=== PATIENT | female | born 1955 | race Caucasian/White ===

== ENCOUNTER 2016-06-25 15:00 | Emergency (ER) | payer BC ==
[2016-06-25] MEDS ORDERED: SODIUM CHLORIDE 0.9% 1,000 ML IV STA ×2 (15:29)
[2016-06-25] MEDS ORDERED: ONDANSETRON 4 MG/2 ML VIAL IVP STA (15:29)
--- NOTE | 2016-06-25 15:43 | ED ---
General Adult HPI - General Chief complaint: Abdominal Pain Stated complaint: Abd pain Time Seen by Provider: 06/25/16 15:17 Source: patient, family, RN notes reviewed Mode of arrival: ambulatory Limitations: no limitations - History of Present Illness Initial comments: Chief complaint and history of present illness is a 61-year-old female here with her . The patient has been vomiting for several days. Unable to keep anything but just sips of water down. Otherwise she's not able to stay hydrated. The patient has had LAP-BAND surgery. Last time she had the port emptied was over 4 years ago. She was at another facility yesterday and 2 attempts to empty the port and deflate the LAP-BAND balloon were unsuccessful. They called Dr. Burt who told her to come here for evaluation. - Related Data Home Medications Medication Instructions Recorded Confirmed Ibuprofen [Motrin] 400 mg PO Q8HR PRN 06/25/16 06/25/16 Allergies Allergy/AdvReac Type Severity Reaction Status Date / Time No Known Allergies Allergy Verified 06/25/16 15:08 Review of Systems ROS Statement: Those systems with pertinent positive or pertinent negative responses have been documented in the HPI. Review of systems no other complaints other than not be all to keep fluids down. She has not tried to eat because that would be related more difficult. Otherwise denying any chest pain shortness of breath no problems. All systems are reviewed. Past medical problems significant for having had LAP-BAND surgery. Denies high blood pressure diabetes. Her surgeries include LAP-BAND 8 years ago. Last time she had a fill or emptying of the port was over 4 years ago. The patient' s other surgeries include cholecystectomy, back surgery twice. Cervical spine surgery, partial hysterectomy, and bladder surgery. The patient's family history significant for father had prostate cancer patient's mother had heart disease. The patient quit smoking over 30 years ago denies alcohol use. ROS Other: All systems not noted in ROS Statement are negative. Past Medical History Past Medical History: No Reported History, Pneumonia History of Any Multi-Drug Resistant Organisms: MRSA Date of last positivie culture/infection: 2009 MDRO Source:: back Past Surgical History: Back Surgery, Cholecystectomy, Hysterectomy Additional Past Surgical History / Comment(s): lap band Past Psychological History: No Psychological Hx Reported Smoking Status: Never smoker Past Alcohol Use History: None Reported Past Drug Use History: None Reported General Exam - General Exam Comments Initial Comments: General: The patient is awake and alert, in no distress, and does not appear acutely ill. Complains not been able to keep fluids down because of her lap band. Vital signs shows temperature 97.5 pulse 72 respiratory rate 18 pulse ox on percent room air blood pressure 172/77 elevated systolic diastolic noted. The patient is in some distress she will be following up with her physician this week. Eye: Pupils are equal, round and reactive to light, extra-ocular movements are intact ; there is normal conjunctiva bilaterally. No signs of icterus. Ears, nose, mouth and throat: There are moist mucous membranes and no oral lesions. Neck: The neck is supple, there is no tenderness Cardiovascular: There is a regular rate and rhythm. No murmur, rub or gallop is appreciated. Respiratory: Lungs are clear to auscultation, respirations are non-labored, breath sounds are equal. No wheezes, stridor, rales, or rhonchi. Gastrointestinal: Soft, non-distended, non-tender abdomen without masses or organomegaly noted. There is no rebound or guarding present. No CVA tenderness. No complaints of recurrent back or extremity pain. Neurological: No complaint of any neuro deficits, no complaint of any numbness or tingling or weakness. Skin: No complaints of any rashes Limitations: no limitations Course Vital Signs 06/25/16 06/25/16 06/25/16 15:01 17:15 17:38 Temperature 97.5 F L 96.8 F L Pulse Rate 72 62 Respiratory 18 16 18 Rate Blood Pressure 172/77 168/96 O2 Sat by Pulse 100 100 Oximetry Medical Decision Making - Medical Decision Making The patient will have labs drawn and more importantly receive IV fluids. General surgeon Dr. Burt was notified of the circumstances and he'll see the patient in the emergency room. Patient was rehydrated well emergency room. Patient was evaluated by Dr. Villareal in emergency room. He was able to withdraw 6 6 mL of fluid from the port. The patient be discharged home she'll follow-up with her LAP-BAND surgeon. - Lab Data Result diagrams: 06/25/16 15:40 06/25/16 15:40 Lab Results 06/25/16 06/25/16 Range/Units 15:40 15:40 WBC 3.4 L (3.8-10.6) k/uL RBC 4.47 (3.80-5.40) m/uL Hgb 14.1 (11.4-16.0) gm/dL Hct 40.2 (34.0-46.0) % MCV 89.9 (80.0-100.0) fL MCH 31.5 (25.0-35.0) pg MCHC 35.0 (31.0-37.0) g/dL RDW 12.5 (11.5-15.5) % Plt Count 114 L (150-450) k/uL Neutrophils % 57 % Lymphocytes % 31 % Monocytes % 6 % Eosinophils % 1 % Basophils % 2 % Neutrophils # 1.9 (1.3-7.7) k/uL Lymphocytes # 1.0 (1.0-4.8) k/uL Monocytes # 0.2 (0-1.0) k/uL Eosinophils # 0.0 (0-0.7) k/uL Basophils # 0.1 (0-0.2) k/uL Sodium 142 (137-145) mmol/L Potassium 4.1 (3.5-5.1) mmol/L Chloride 102 (98-107) mmol/L Carbon Dioxide 29 (22-30) mmol/L Anion Gap 11 mmol/L BUN 14 (7-17) mg/dL Creatinine 0.80 (0.52-1.04) mg/dL Est GFR (MDRD) Af Amer >60 (>60 ml/min/1.73 sqM) Est GFR (MDRD) Non-Af >60 (>60 ml/min/1.73 sqM) Glucose 84 (74-99) mg/dL Calcium 9.8 (8.4-10.2) mg/dL Total Bilirubin 0.9 (0.2-1.3) mg/dL AST 25 (14-36) U/L ALT 29 (9-52) U/L Alkaline Phosphatase 48 (38-126) U/L Total Protein 7.0 (6.3-8.2) g/dL Albumin 4.4 (3.5-5.0) g/dL Disposition Clinical Impression: Encounter for adjustment of gastric lap band, Dehydration Disposition: HOME SELF-CARE Condition: Stable Instructions: Dehydration (ED) Additional Instructions: Advance diet fluids first. Follow-up with LAP-BAND surgeon Time of Disposition: 17:49
[2016-06-25 15:56] LABS: Basophils # (A) 0.1 k/uL (0-0.2); Basophils % (A) 2 %; CH 30.6; CHCM 34.2; Eosinophils % (A) 1 %; HCT 40.2 % (34.0-46.0); HGB 14.1 gm/dL (11.4-16.0); Luc # (Auto) 0.13; Luc % (Auto) 4; Lymphocytes % (A) 31 %; MCH 31.5 pg (25.0-35.0); MCV 89.9 fL (80.0-100.0); Mean Platelet Volume 8.2; Monocytes # (A) 0.2 k/uL (0-1.0); Monocytes % (A) 6 %; Neutrophils # (A) 1.9 k/uL (1.3-7.7); Neutrophils % (A) 57 %; RBC 4.47 m/uL (3.80-5.40); RDW 12.5 % (11.5-15.5); WBC 3.4 k/uL (3.8-10.6); WBC (Perox) 3.44
[2016-06-25 16:03] LABS: ALT 29 U/L (9-52); AST 25 U/L (14-36); Alkaline Phosphatase 48 U/L (38-126); Anion Gap 11 mmol/L; Blood Urea Nitrogen 14 mg/dL (7-17); Calcium 9.8 mg/dL (8.4-10.2); Carbon Dioxide 29 mmol/L (22-30); Chloride 102 mmol/L (98-107); Glucose 84 mg/dL (74-99); Non-African American GFR(MDRD) >60 (>60 ml/min/1.73 sqM); Potassium 4.1 mmol/L (3.5-5.1); Sodium 142 mmol/L (137-145); Total Bilirubin 0.9 mg/dL (0.2-1.3)
[2016-06-25 17:39] VITALS: BP 168/96; PULSE 62; RESP 18; TEMP 96.8
--- NOTE | 2016-06-26 08:22 | PN ---
DATE OF SERVICE: 06/25/2016 CHIEF COMPLAINT: Dysphagia. HISTORY OF PRESENT ILLNESS: The patient is a 61-year-old female who contacted me yesterday with complaints of dysphagia. She was in, I believe, [place]'s ER. I spoke with the ER physician. Attempts were made to loosen the patient's indwelling lap band. These were unsuccessful. The patient had her lap band placed 7 to 10 years ago. She believes she has 7 mL of fluid in the band. She started having progressive dysphagia last several days, although admits that her band has been quite tight for the last year or so. The patient has had fairly impressive weight loss that she says is intentional. Denies pain. Intolerance of liquids and solids. HISTORY AND PHYSICAL: Refer to ER chart. PHYSICAL EXAM: HEENT is normocephalic. Sclerae anicteric. Chest is clear. HEART: Regular rate and rhythm. ABDOMEN: Soft, nontender, nondistended. IMPRESSION: A 61-year-old female with progressive dysphagia post lap band. PLAN: The patient's band port was accessed in a sterile condition. Total of 6 mL of saline was evacuated without difficulty. The patient was then able to tolerate liquids without any dysphagia symptoms. The patient will be discharged home with plans for outpatient follow-up in 2 to 3 weeks. Upper GI will be advised at that time.
== END 2016-06-25 18:12 | disposition home or self-care (01) ==
LOC: EC 15:00
DX: E86.0 Dehydration (principal); R10.9 Unspecified abdominal pain; R11.10 Vomiting, unspecified; Z90.49 Acquired absence of other specified parts of digestive tract; Z98.84 Bariatric surgery status
CPT/HCPCS: 36415; 80053; 85025; 99284; 96374; 96361 ×2; J2405

== ENCOUNTER → 2016-07-18 | Outpatient (CLI) | payer BC ==
[2016-07-18 10:20] VITALS: BP 147/89; PULSE 70; RESP 16; TEMP 97.2; BMI 25.4
--- NOTE | 2016-07-18 10:20 | P.HPBAR ---
Bariatric H&P - History & Physicial H&P Date: 07/18/16 History & Physicial: Visit/CC: Patient initial contact: Initial weight: Initial weight in pounds: Height: Initial BMI: Last weight: Current weight: Current weight in pounds: Current BMI: [place] body weight (based on NIH guidelines): Excess body weight loss: The patient is a 61 year-old F who presents for Bariatric Assessment. The patient is requesting a fill of her LAP-BAND. She states her band had 6 mL removed several weeks ago in the emergency room. She currently is hungry. She denies any dysphagia. Past Medical History Past Medical History: No Reported History, Pneumonia History of Any Multi-Drug Resistant Organisms: MRSA Year Discovered:: 2009 MDRO Source:: back Past Surgical History: Back Surgery, Cholecystectomy, Hysterectomy Additional Past Surgical History / Comment(s): lap band Past Psychological History: No Psychological Hx Reported Smoking Status: Never smoker Past Alcohol Use History: None Reported Past Drug Use History: None Reported Surgical - Exam - General well developed, no distress - Eyes PERRL - ENT normal pinna - Neck no masses - Respiratory normal expansion - Cardiovascular Rhythm: regular - Abdomen Abdomen: soft, non tender Bariatric Assessment & Plan Plan: The patient's lap band was adjusted. She had 3 mL added to her LAP-BAND. She currently has 4 mL in the band. She was able to water without difficulty. She will undergo esophagram upper GI today. Bariatric Checklist Checklist: Plan: Checklist: EGD: 1. Hiatal hernia: 2. H. Pylori: HgbA1c: Vitamin D: Smoking: Never smoker Primary care physician referral: Psychiatry clearance: Cardiology clearance: Sleep study: Diet journal: VTE risk score: VTE risk level: Rehab needs at discharge:
--- NOTE | 2016-07-18 13:53 | FL ---
EXAMINATION: Single contrast esophagram DATE OF EXAM: 07/18/2016 12:10 PM CLINICAL INDICATION: 61-year-old female with dysphasia, food backing up, discomfort for 3 days. Patie nt with improvement after fluid removal from lap band. Partially refilled now. COMPARISON: 06/05/2009 Total Fluoroscopy Time: 60 seconds FINDINGS: The esophagus has a normal course, caliber, and motility. There is similar horizontal orientation of the lap band with slight anterior posterior tilt, not significantly changed from 06/05/2009. There is good flow of contrast from the esophagus into the stomach without any obstruction. There is mild rest riction to the passage of contrast. IMPRESSION: 1. The lap band has a similar horizontal and slightly AP tilted configuration as compared to 2009. 2. Good flow across the lap band. No evidence for obstruction or lap band prolapse.
== END | disposition home or self-care (01) ==
LOC: BARWHC3 10:00
PROVIDERS: ATTEND Surgery
DX: Z48.815 Encounter for surgical aftercare following surgery on the digestive system (principal); Z98.84 Bariatric surgery status; Z87.01 Personal history of pneumonia (recurrent)
CPT/HCPCS: 74220; 99212